=== PATIENT | female | born 1990 | race Two or more races ===

== ENCOUNTER 2020-02-17 00:19 | Emergency (ER) | payer OTHER ==
[~2020-02-17] VITALS: Ht 160 cm; Wt 83.9 kg
[2020-02-17] MEDS ORDERED: KEFLEX500 MG PO (03:22)
[2020-02-17] MEDS ORDERED: PYRIDIUM DS200 MG PO (03:22)
== END 2020-02-17 03:28 | disposition home or self-care (01) ==
LOC: ER 00:19
DX: N30.81 Other cystitis with hematuria (principal)

== ENCOUNTER 2020-03-09 16:32 | Emergency (ER) | payer OTHER ==
[~2020-03-09] VITALS: Ht 160 cm; Wt 81.6 kg
[~2020-03-09 16:32] MED LIST: KEFLEX500 MG PO; PYRIDIUM DS200 MG PO
== END 2020-03-09 21:00 | disposition home or self-care (01) ==
LOC: ER 16:32
DX: R10.13 Epigastric pain (principal)

== ENCOUNTER → 2021-05-15 | Emergency (ER) | payer OTHER ==
[~2021-05-15] VITALS: Ht 160 cm; Wt 81.6 kg
== END | disposition left against medical advice (07) ==
LOC: ER 18:22
DX: Z53.29 Procedure and treatment not carried out because of patient's decision for other reasons (principal)